=== PATIENT | male | born 1955 | race Caucasian/White ===

== ENCOUNTER 2022-02-21 00:19 | Day surgery (SDC) | payer MEDICARE, SELFPAY ==
[2022-02-12 13:07] VITALS: BMI 30.4
--- NOTE | 2022-02-20 12:28 | PM.HPGS ---
History of Present Illness History of Present Illness Consent: Risks, benefits, and alternatives have been discussed and questions answered. Patient agrees to proceed with procedure. Chief complaint: hx colon polyps Narrative: Manohar Dougherty is a 66 year old male referred for colon cancer screening. He had 2 tubular adenomas removed about 5 years ago. Review of Systems Review of Systems: All systems reviewed & are unremarkable except as noted in HPI and below PMFSH Social History Social History Smoking packs per day: 1 Smoking cigarettes per day: 20.0 Years smoked: 20 Smoking pack-years: 20.00 Smoking status: Former smoker Tobacco type: cigarettes Alcohol intake: never Substance use type: does not use Living arrangements: with family Spiritual care concerns: No Meds Home Medications and Allergies Home Medications Medication Instructions Recorded Confirmed Type aspirin 81 mg tablet 81 mg PO DAILY 02/12/22 02/12/22 History ezetimibe 10 mg tablet 10 mg PO DAILY 02/12/22 02/12/22 History hydrochlorothiazide 25 mg tablet 25 mg PO DAILY 02/12/22 02/12/22 History lisinopril 10 mg tablet 10 mg PO DAILY 02/12/22 02/12/22 History metoprolol succinate 50 mg 50 mg PO DAILY 02/12/22 02/12/22 History tablet,extended release 24 hr pravastatin 40 mg tablet 40 mg PO DAILY 02/12/22 02/12/22 History rabeprazole 20 mg tablet,delayed 20 mg PO DAILY 02/12/22 02/12/22 History release tamsulosin 0.4 mg capsule 0.4 mg PO DAILY 02/12/22 02/12/22 History Allergies Allergy/AdvReac Type Severity Reaction Status Date / Time No Known Allergies Allergy Verified 02/21/22 06:51 Exam Resp: Auscultation: clear to auscultation bilaterally Cardio: Rate: regular rate Rhythm: regular rhythm GI: GI Palp: Yes Soft to palpation and No Tenderness to palpation present (GI) Assessment and Plan Assessment and plan (1) Colon cancer screening: Code(s): Z12.11 - Encounter for screening for malignant neoplasm of colon Status: Acute
[2022-02-21 06:52] VITALS: BP 138/69; PULSE 70; RESP 16; TEMP 36.4; O2SAT 98
[2022-02-21] MEDS: LACTATED RINGERS 1,000 ML 150 ML IV CONT (06:56)
--- NOTE | 2022-02-21 07:24 | P.PNAN_ITS ---
Anes - Initial Pre Proc Eval Procedure: Operation Date: 02/21/22 07:30 Proposed Procedures p Screening Colonoscopy - Leo Damon MD Date/Time: 02/21/22 07:24 Surgeon: Leo Damon MD Pre Op Diagnosis: hx colon polyps Patient Data Age: 66 Gender: M Height: 1.73 m Weight: 94 kg Last Vital Signs Temp 97.6 F 02/21/22 06:52 Pulse 70 02/21/22 06:52 Resp 16 02/21/22 06:52 BP 138/69 02/21/22 06:52 Pulse Ox 98 02/21/22 06:52 O2 Del Method Room Air 02/21/22 06:52 Allergies Allergy/AdvReac Type Severity Reaction Status Date / Time No Known Allergies Allergy Verified 02/21/22 06:51 Home Medications Medication Instructions Recorded Confirmed Type aspirin 81 mg tablet 81 mg PO DAILY 02/12/22 02/12/22 History ezetimibe 10 mg tablet 10 mg PO DAILY 02/12/22 02/12/22 History hydrochlorothiazide 25 mg tablet 25 mg PO DAILY 02/12/22 02/12/22 History lisinopril 10 mg tablet 10 mg PO DAILY 02/12/22 02/12/22 History metoprolol succinate 50 mg 50 mg PO DAILY 02/12/22 02/12/22 History tablet,extended release 24 hr pravastatin 40 mg tablet 40 mg PO DAILY 02/12/22 02/12/22 History rabeprazole 20 mg tablet,delayed 20 mg PO DAILY 02/12/22 02/12/22 History release tamsulosin 0.4 mg capsule 0.4 mg PO DAILY 02/12/22 02/12/22 History Patient hx anesthesia problems: none Family hx anesthesia problems: none Results Review: All pre-operative results and documents have been reviewed as part of the pre- operative evaluation. [facility] Social History Social History Smoking packs per day: 1 Smoking cigarettes per day: 20.0 Years smoked: 20 Smoking pack-years: 20.00 Smoking status: Former smoker Tobacco type: cigarettes Alcohol intake: never Substance use type: does not use Living arrangements: with family Spiritual care concerns: No Anes - Eval Final PreProcedure Day of Procedure 02/21/22 07:24 Results Review: All pre-operative results and documents have been reviewed as part of the pre- operative evaluation. Informed Consent: The patient's anesthetic plan and its attendant risks and benefits were discuss ed with the patient/family/POA. Questions were solicited and answers provided to the satisfaction of the patient/family/POA.
[2022-02-21 07:39] VITALS: BP 88/61; PULSE 65; RESP 24; O2SAT 93
[2022-02-21 07:49] VITALS: BP 104/64; PULSE 64; RESP 20; O2SAT 95
--- NOTE | 2022-02-21 07:51 | P.PNAN_ITS ---
Anes - Initial Pre Proc Eval Procedure: Operation Date: 02/21/22 07:30 Proposed Procedures p Screening Colonoscopy - Leo Damon MD Date/Time: 02/21/22 07:51 Surgeon: Leo Damon MD Pre Op Diagnosis: hx colon polyps Patient Data Age: 66 Gender: M Height: 1.73 m Weight: 94 kg Last Vital Signs Temp 97.6 F 02/21/22 06:52 Pulse 65 02/21/22 07:39 Resp 24 H 02/21/22 07:39 BP 88/61 L 02/21/22 07:39 Pulse Ox 93 02/21/22 07:39 O2 Del Method Room Air 02/21/22 07:39 Allergies Allergy/AdvReac Type Severity Reaction Status Date / Time No Known Allergies Allergy Verified 02/21/22 06:51 Home Medications Medication Instructions Recorded Confirmed Type aspirin 81 mg tablet 81 mg PO DAILY 02/12/22 02/12/22 History ezetimibe 10 mg tablet 10 mg PO DAILY 02/12/22 02/12/22 History hydrochlorothiazide 25 mg tablet 25 mg PO DAILY 02/12/22 02/12/22 History lisinopril 10 mg tablet 10 mg PO DAILY 02/12/22 02/12/22 History metoprolol succinate 50 mg 50 mg PO DAILY 02/12/22 02/12/22 History tablet,extended release 24 hr pravastatin 40 mg tablet 40 mg PO DAILY 02/12/22 02/12/22 History rabeprazole 20 mg tablet,delayed 20 mg PO DAILY 02/12/22 02/12/22 History release tamsulosin 0.4 mg capsule 0.4 mg PO DAILY 02/12/22 02/12/22 History Patient hx anesthesia problems: none Family hx anesthesia problems: none Results Review: All pre-operative results and documents have been reviewed as part of the pre- operative evaluation. [facility] Social History Social History Smoking packs per day: 1 Smoking cigarettes per day: 20.0 Years smoked: 20 Smoking pack-years: 20.00 Smoking status: Former smoker Tobacco type: cigarettes Alcohol intake: never Substance use type: does not use Living arrangements: with family Spiritual care concerns: No Anes - Eval Final PreProcedure Day of Procedure 02/21/22 07:51 Patient weight: obese Heart: regular rate and rhythm Lungs: clear to auscultation Airway: Mallampati scale class II Neurological: alert and oriented Last oral intake: >/= 8 hours ASA classification: III Emergent: no Anesthetic plan: proceed Anesthesia type and monitoring: general GIVS and standard monitoring Results Review: All pre-operative results and documents have been reviewed as part of the pre- operative evaluation. Informed Consent: The patient's anesthetic plan and its attendant risks and benefits were discussed with the patient/family/POA. Questions were solicited and answers provided to the satisfaction of the patient/family/POA.
[2022-02-21 07:59] VITALS: BP 104/65; PULSE 58; RESP 18; O2SAT 95
== END 2022-02-21 08:05 | disposition home or self-care (01) ==
PROVIDERS: PCP Registered Nurse; Visit Provider Internal Medicine Gastroenterology
PROC: 0DJD8ZZ Inspection of Lower Intestinal Tract, Via Natural or Artificial Opening Endoscopic (ICD-10-PCS; CPT 45378; principal; 2022-02-21 07:30)
DX: Z12.11 Encounter for screening for malignant neoplasm of colon (principal); K57.30 Diverticulosis of large intestine without perforation or abscess without bleeding; Z86.010 Personal history of colon polyps; Z79.82 Long term (current) use of aspirin; Z87.891 Personal history of nicotine dependence
CPT/HCPCS: G0105; J2704; J7120